=== PATIENT | female | born 1975 | race African-American/Black ===

== ENCOUNTER 2022-09-22 17:45 | Inpatient (IN) | payer MEDICAID ==
[~2022-09-22] VITALS: Ht 167.6 cm; Wt 85.3 kg
[2022-09-22 18:16] VITALS: BP 152/102; TEMP 98.4; O2SAT 98
[2022-09-22] MEDS ORDERED: ASPI81TA31 PO (18:44)
[2022-09-22] MEDS ORDERED: CLOP75TA15 PO (18:44)
[2022-09-22] MEDS ORDERED: METO-356 PO (18:44)
[2022-09-22] MEDS ORDERED: LISI20TA30 PO (18:44)
[2022-09-22] MEDS ORDERED: POTA-88 PO (18:44)
[2022-09-22] MEDS ORDERED: FURO40TA5 PO (18:44)
[2022-09-22] MEDS ORDERED: ONDANSETRON 4 MG/2 ML VIAL IV PRN (19:00)
[2022-09-22] MEDS ORDERED: ACETAMINOPHEN 325 MG TABLET PO PRN (19:00)
[2022-09-22] MEDS ORDERED: ZOLPIDEM 5 MG TABLET PO PRN (19:00)
[2022-09-22] MEDS ORDERED: MAGNESIUM HYDROXIDE 30 ML LIQUID UDC PO PRN (19:00)
[2022-09-22] MEDS ORDERED: REMEDY ESSENTIAL ZINC PASTE 113 GM TP PRN (19:00)
[2022-09-22 19:33] LABS: BASOPHILS # (AUTO) 0.1 K/UL (0.0-0.2); EOSINOPHILS % (AUTO) 0.5 % (0.0-7.0); HEMATOCRIT 40.3 % (31.2-41.9); HEMOGLOBIN 12.7 g/dL (10.9-14.3); LYMPHOCYTES # (AUTO) 2.2 K/uL (0.8-4.8); LYMPHOCYTES % (AUTO) 27.2 % (20.5-51.5); MEAN CORPUSCULAR HEMOGLOBIN 25.4 uug (24.7-32.8); MEAN CORPUSCULAR HGB CONC 32 g/dL (32.3-35.6); MEAN CORPUSCULAR VOLUME 80.2 fL (75.5-95.3); MONOCYTES # (AUTO) 0.5 K/uL (0.1-1.30); MONOCYTES % (AUTO) 5.9 % (0.0-11.0); NEUTROPHILS # (AUTO) 5.3 K/uL (1.8-8.9); NEUTROPHILS % (AUTO) 65.4 % (38.5-71.5); PLATELET COUNT (AUTO) 278 K/uL (179-408); RED BLOOD CELL COUNT(AUTO) 5.02 MIL/uL (3.63-4.92); RED CELL DISTRIBUTION WIDTH 17.2 % (12.3-17.7); WHITE BLOOD COUNT (AUTO) 8.2 K/uL (3.8-11.8)
[2022-09-22 19:42] LABS: DIFFERENTIAL COMMENT 1
[2022-09-22 20:01] LABS: THYROID STIMULATING HORMONE 1.406 mIU/mL (0.358-3.740)
[2022-09-22 20:03] LABS: ALANINE AMINOTRANSFERASE 74 U/L (14-59); ALKALINE PHOSPHATASE 120 U/L (50-136); ASPARTATE AMINOTRANSFERASE 38 U/L (15-37); BILIRUBIN,TOTAL 0.8 mg/dL (0.2-1.0); CALCIUM 8.7 mg/dL (8.5-10.1); CARBON DIOXIDE 30 mmol/L (21-32); CHLORIDE 104 mmol/L (98-107); GLUCOSE 143 mg/dL (74-106); MAGNESIUM 1.9 mg/dL (1.8-2.4); NT-PRO BNP 3172 pg/mL (0-125); POTASSIUM 3.6 mmol/L (3.5-5.1); SODIUM SERUM 141 mmol/L (136-145); TOTAL PROTEIN, SERUM 7.3 g/dL (6.4-8.2); UREA NITROGEN, BLOOD 14 mg/dL (7-18)
[2022-09-22 20:27] VITALS: BP 149/94; TEMP 98.7; O2SAT 96
[2022-09-22] MEDS: ENOXAPARIN SODIUM 40 MG/0.4 ML DISP.SYRIN SQ SCH (20:56)
[2022-09-23 00:02] VITALS: BP 129/101; TEMP 98.6; O2SAT 99
[2022-09-23 04:05] VITALS: BP 143/108; TEMP 97.9; O2SAT 98
[2022-09-23 07:30] LABS: BASOPHILS % (AUTO) 0.5 % (0.0-2.0); DIFFERENTIAL COMMENT 0; EOSINOPHILS % (AUTO) 0.3 % (0.0-7.0); HEMATOCRIT 39.2 % (31.2-41.9); HEMOGLOBIN 12.6 g/dL (10.9-14.3); LYMPHOCYTES # (AUTO) 2.5 K/uL (0.8-4.8); LYMPHOCYTES % (AUTO) 34.8 % (20.5-51.5); MEAN CORPUSCULAR HEMOGLOBIN 25.7 uug (24.7-32.8); MEAN CORPUSCULAR HGB CONC 32 g/dL (32.3-35.6); MEAN CORPUSCULAR VOLUME 80.1 fL (75.5-95.3); MONOCYTES # (AUTO) 0.5 K/uL (0.1-1.30); MONOCYTES % (AUTO) 6.5 % (0.0-11.0); NEUTROPHILS # (AUTO) 4.2 K/uL (1.8-8.9); NEUTROPHILS % (AUTO) 57.9 % (38.5-71.5); PLATELET COUNT (AUTO) 276 K/uL (179-408); RED CELL DISTRIBUTION WIDTH 17.2 % (12.3-17.7); WHITE BLOOD COUNT (AUTO) 7.2 K/uL (3.8-11.8)
[2022-09-23 07:34] LABS: CALCIUM 8.4 mg/dL (8.5-10.1); CREATININE 0.8 mg/dL (0.6-1.3); MAGNESIUM 1.8 mg/dL (1.8-2.4); PHOSPHOROUS 3.6 mg/dL (2.5-4.9); POTASSIUM 3.6 mmol/L (3.5-5.1)
[2022-09-23] MEDS: PANTOPRAZOLE SODIUM 40 MG VIAL IV SCH (08:58)
[2022-09-23] MEDS: LISINOPRIL 20 MG TABLET PO SCH (08:59)
[2022-09-23] MEDS: CLOPIDOGREL 75 MG TABLET PO SCH (08:59)
[2022-09-23] MEDS: ASPIRIN 81 MG TAB.CHEW PO SCH (08:59)
[2022-09-23] MEDS ORDERED: POTASSIUM CHLORIDE 20 MEQ TAB.PRT.SR PO SCH (09:00)
[2022-09-23] MEDS: METOPROLOL SUCCINATE XL 25 MG TAB.SR.24H PO SCH (09:00)
[2022-09-23] MEDS: FUROSEMIDE 40 MG/4 ML VIAL IV SCH ×2 (10:21→20:33)
[2022-09-23 11:42] VITALS: BP 139/102; TEMP 98.6; O2SAT 97
[2022-09-23] MEDS: SPIRONOLACTONE 25 MG TABLET PO SCH (13:02)
[2022-09-23 13:47] LABS: *AMPHETAMINE, URINE NEGATIVE (NEGATIVE); *BARBITURATE, URINE NEGATIVE (NEGATIVE); *BENZODIAZEPINE, URINE NEGATIVE (NEGATIVE); *CANNABINOID, URINE NEGATIVE (NEGATIVE); *COCCAINE, URINE NEGATIVE (NEGATIVE); *OPIATE, URINE NEGATIVE (NEGATIVE); *PHENCYCLIDINE SCREEN,URINE NEGATIVE (NEGATIVE); FENTANYL, URINE NEGATIVE (NEGATIVE)
[2022-09-23 16:09] VITALS: BP 125/83; TEMP 98.3; O2SAT 98
[2022-09-23] MEDS: ATORVASTATIN 40 MG TABLET PO SCH (20:33)
[2022-09-23] MEDS: ENOXAPARIN SODIUM 40 MG/0.4 ML DISP.SYRIN SQ SCH (20:34)
[2022-09-23 20:36] VITALS: BP 101/71; TEMP 98.6; O2SAT 98
[2022-09-24 04:10] VITALS: BP 126/95; TEMP 98.4; O2SAT 95
[2022-09-24 06:54] LABS: BASOPHILS # (AUTO) 0.1 K/UL (0.0-0.2); BASOPHILS % (AUTO) 0.8 % (0.0-2.0); EOSINOPHILS % (AUTO) 0.5 % (0.0-7.0); HEMATOCRIT 38.3 % (31.2-41.9); HEMOGLOBIN 12.2 g/dL (10.9-14.3); LYMPHOCYTES # (AUTO) 2.9 K/uL (0.8-4.8); MEAN CORPUSCULAR HEMOGLOBIN 25.3 uug (24.7-32.8); MEAN CORPUSCULAR HGB CONC 32 g/dL (32.3-35.6); MEAN CORPUSCULAR VOLUME 79.5 fL (75.5-95.3); MONOCYTES # (AUTO) 0.5 K/uL (0.1-1.30); MONOCYTES % (AUTO) 6.4 % (0.0-11.0); NEUTROPHILS # (AUTO) 3.9 K/uL (1.8-8.9); NEUTROPHILS % (AUTO) 53.3 % (38.5-71.5); PLATELET COUNT (AUTO) 293 K/uL (179-408); RED BLOOD CELL COUNT(AUTO) 4.83 MIL/uL (3.63-4.92); WHITE BLOOD COUNT (AUTO) 7.3 K/uL (3.8-11.8)
[2022-09-24 07:20] LABS: DIFFERENTIAL COMMENT 1
[2022-09-24 07:25] LABS: CALCIUM 8.6 mg/dL (8.5-10.1); CREATININE 0.9 mg/dL (0.6-1.3); MAGNESIUM 1.8 mg/dL (1.8-2.4); PHOSPHOROUS 3.8 mg/dL (2.5-4.9); POTASSIUM 3.8 mmol/L (3.5-5.1)
[2022-09-24] MEDS: PANTOPRAZOLE SODIUM 40 MG VIAL IV SCH (09:03)
[2022-09-24] MEDS: FUROSEMIDE 40 MG/4 ML VIAL IV SCH ×2 (09:03→21:20)
[2022-09-24] MEDS: CLOPIDOGREL 75 MG TABLET PO SCH (09:04)
[2022-09-24] MEDS: METOPROLOL SUCCINATE XL 25 MG TAB.SR.24H PO SCH (09:04)
[2022-09-24] MEDS: LISINOPRIL 20 MG TABLET PO SCH (09:04)
[2022-09-24] MEDS: SPIRONOLACTONE 25 MG TABLET PO SCH (09:04)
[2022-09-24] MEDS: ASPIRIN 81 MG TAB.CHEW PO SCH (09:05)
[2022-09-24] MEDS: MAGNESIUM SULFATE/D5W 100 ML IV SCH ×2 (10:23→11:24)
[2022-09-24] MEDS ORDERED: POTASSIUM CHLORIDE 20 MEQ POWDER PACKET PO ONE (10:30)
[2022-09-24 12:22] VITALS: BP 128/91; TEMP 97.3; O2SAT 98
[2022-09-24 16:00] VITALS: BP 126/93; TEMP 98.3; O2SAT 100
[2022-09-24] MEDS: ATORVASTATIN 40 MG TABLET PO SCH (21:20)
[2022-09-24] MEDS: ENOXAPARIN SODIUM 40 MG/0.4 ML DISP.SYRIN SQ SCH (21:21)
[2022-09-24 23:36] VITALS: BP 123/79; TEMP 98; O2SAT 99
[2022-09-25 04:25] VITALS: BP 99/69; TEMP 98.2; O2SAT 99
[2022-09-25] MEDS: PANTOPRAZOLE SODIUM 40 MG TABLET.DR PO SCH ×2 (06:34→06:53)
[2022-09-25] MEDS: FUROSEMIDE 40 MG/4 ML VIAL IV SCH (09:04)
[2022-09-25] MEDS: SPIRONOLACTONE 25 MG TABLET PO SCH (09:05)
[2022-09-25] MEDS: ASPIRIN 81 MG TAB.CHEW PO SCH (09:05)
[2022-09-25] MEDS: CLOPIDOGREL 75 MG TABLET PO SCH (09:05)
[2022-09-25] MEDS: BUMETANIDE 1 MG TABLET PO SCH ×2 (10:00→16:44)
[2022-09-25 10:03] LABS: BASOPHILS # (AUTO) 0.1 K/UL (0.0-0.2); EOSINOPHILS # (AUTO) 0.1 K/uL (0.0-0.7); HEMATOCRIT 39.7 % (31.2-41.9); HEMOGLOBIN 12.6 g/dL (10.9-14.3); LYMPHOCYTES # (AUTO) 2.3 K/uL (0.8-4.8); LYMPHOCYTES % (AUTO) 24.8 % (20.5-51.5); MEAN CORPUSCULAR HGB CONC 32 g/dL (32.3-35.6); MEAN CORPUSCULAR VOLUME 81.6 fL (75.5-95.3); MONOCYTES # (AUTO) 0.7 K/uL (0.1-1.30); MONOCYTES % (AUTO) 7.7 % (0.0-11.0); NEUTROPHILS # (AUTO) 6.1 K/uL (1.8-8.9); NEUTROPHILS % (AUTO) 65.5 % (38.5-71.5); PLATELET COUNT (AUTO) 283 K/uL (179-408); RED BLOOD CELL COUNT(AUTO) 4.86 MIL/uL (3.63-4.92); RED CELL DISTRIBUTION WIDTH 17.2 % (12.3-17.7); WHITE BLOOD COUNT (AUTO) 9.3 K/uL (3.8-11.8)
[2022-09-25 10:07] LABS: DIFFERENTIAL COMMENT 1
[2022-09-25 10:15] LABS: ALBUMIN 2.8 g/dL (3.4-5.0); BILIRUBIN,TOTAL 0.8 mg/dL (0.2-1.0); CALCIUM 8.8 mg/dL (8.5-10.1); CREATININE 0.9 mg/dL (0.6-1.3); MAGNESIUM 2.1 mg/dL (1.8-2.4); TOTAL PROTEIN, SERUM 7.5 g/dL (6.4-8.2)
[2022-09-25] MEDS: METOPROLOL SUCCINATE XL 25 MG TAB.SR.24H PO SCH (11:14)
[2022-09-25] MEDS: LISINOPRIL 20 MG TABLET PO SCH (11:15)
[2022-09-25 11:29] VITALS: BP 114/75; TEMP 98.3; O2SAT 100
[2022-09-25 16:00] VITALS: BP 110/81; TEMP 98.5; O2SAT 98
[2022-09-25 20:00] VITALS: BP 110/80; TEMP 98.1; O2SAT 98
[2022-09-25] MEDS: ENOXAPARIN SODIUM 40 MG/0.4 ML DISP.SYRIN SQ SCH (21:45)
[2022-09-25] MEDS: ATORVASTATIN 40 MG TABLET PO SCH (21:45)
[2022-09-26] VITALS: BP 117/84; TEMP 97.7; O2SAT 97
[2022-09-26 04:00] VITALS: BP 104/76; TEMP 97.1; O2SAT 100
[2022-09-26] MEDS: PANTOPRAZOLE SODIUM 40 MG TABLET.DR PO SCH (06:25)
[2022-09-26 06:34] LABS: BASOPHILS # (AUTO) 0.1 K/UL (0.0-0.2); BASOPHILS % (AUTO) 0.8 % (0.0-2.0); EOSINOPHILS # (AUTO) 0.1 K/uL (0.0-0.7); EOSINOPHILS % (AUTO) 0.8 % (0.0-7.0); HEMATOCRIT 38.6 % (31.2-41.9); HEMOGLOBIN 12.5 g/dL (10.9-14.3); LYMPHOCYTES # (AUTO) 2.4 K/uL (0.8-4.8); LYMPHOCYTES % (AUTO) 35.8 % (20.5-51.5); MEAN CORPUSCULAR HEMOGLOBIN 25.7 uug (24.7-32.8); MEAN CORPUSCULAR HGB CONC 32 g/dL (32.3-35.6); MEAN CORPUSCULAR VOLUME 79.8 fL (75.5-95.3); MONOCYTES # (AUTO) 0.6 K/uL (0.1-1.30); MONOCYTES % (AUTO) 9.3 % (0.0-11.0); NEUTROPHILS # (AUTO) 3.6 K/uL (1.8-8.9); NEUTROPHILS % (AUTO) 53.3 % (38.5-71.5); PLATELET COUNT (AUTO) 308 K/uL (179-408); RED BLOOD CELL COUNT(AUTO) 4.84 MIL/uL (3.63-4.92); RED CELL DISTRIBUTION WIDTH 16.9 % (12.3-17.7); WHITE BLOOD COUNT (AUTO) 6.8 K/uL (3.8-11.8)
[2022-09-26 06:48] LABS: DIFFERENTIAL COMMENT 1
[2022-09-26 06:53] LABS: CALCIUM 8.6 mg/dL (8.5-10.1); CREATININE 0.8 mg/dL (0.6-1.3); MAGNESIUM 1.9 mg/dL (1.8-2.4); PHOSPHOROUS 3.3 mg/dL (2.5-4.9); POTASSIUM 3.9 mmol/L (3.5-5.1)
[2022-09-26] MEDS: LISINOPRIL 20 MG TABLET PO SCH (08:18)
[2022-09-26] MEDS: SPIRONOLACTONE 25 MG TABLET PO SCH (08:18)
[2022-09-26] MEDS: CLOPIDOGREL 75 MG TABLET PO SCH (08:19)
[2022-09-26] MEDS: ASPIRIN 81 MG TAB.CHEW PO SCH (08:19)
[2022-09-26] MEDS: BUMETANIDE 1 MG TABLET PO SCH (08:19)
[2022-09-26] MEDS: METOPROLOL SUCCINATE XL 25 MG TAB.SR.24H PO SCH (08:20)
[2022-09-26] MEDS ORDERED: POTA-88 PO (10:25)
[2022-09-26] MEDS ORDERED: LISI20TA30 PO (10:25)
[2022-09-26] MEDS ORDERED: SPIR25TA PO (10:25)
[2022-09-26] MEDS ORDERED: ATOR40TA PO (10:25)
[2022-09-26] MEDS ORDERED: BUME2TAB7 PO (10:25)
[2022-09-26] MEDS ORDERED: EMPA10TA PO (10:25)
[2022-09-26] MEDS ORDERED: METO-357 PO (10:25)
[2022-09-26 12:00] VITALS: BP 106/79; TEMP 98.1; O2SAT 98
== END 2022-09-26 13:30 | disposition home or self-care (01) | DRG 194 ==
LOC: TELE3 17:45
PROVIDERS: ADMIT Nurse Practitioner Acute Care; ATTEND Nurse Practitioner Acute Care
DX: I50.23 Acute on chronic systolic (congestive) heart failure (principal); I21.A1 Myocardial infarction type 2; E44.1 Mild protein-calorie malnutrition; I42.9 Cardiomyopathy, unspecified; E88.09 Other disorders of plasma-protein metabolism, not elsewhere classified; Z68.30 Body mass index [BMI] 30.0-30.9, adult; I25.10 Atherosclerotic heart disease of native coronary artery without angina pectoris; I25.2 Old myocardial infarction; Z79.02 Long term (current) use of antithrombotics/antiplatelets; Z79.899 Other long term (current) drug therapy; Z79.82 Long term (current) use of aspirin; Z83.3 Family history of diabetes mellitus; Z95.5 Presence of coronary angioplasty implant and graft; E78.5 Hyperlipidemia, unspecified
CPT/HCPCS: 36415; 71045; 83735; 84100; 84443; 84484; 85018; 85025; 85610; 93307; A4663; C9113; G0378; J1650; J1940; J3475